=== PATIENT | female | born 2000 | race Caucasian/White ===

== ENCOUNTER 2023-05-17 02:22 | Emergency (ER) | payer OTHER ==
[~2023-05-17] VITALS: Ht 167.6 cm; Wt 63.5 kg
[2023-05-17 02:27] VITALS: BP 137/61; PULSE 105; RESP 16; TEMP 97.5; O2SAT 98
[2023-05-17] MEDS ORDERED: NACL 0.9% 1,000 ML IV ONE (02:35)
[2023-05-17] MEDS ORDERED: DEXT10CA PO (02:43)
[2023-05-17] MEDS ORDERED: LORazepam 2 MG/ML VIAL IVP ONE (02:45)
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
--- NOTE | 2023-05-17 02:48 | NUR ---
Placed in bed 7.
--- NOTE | 2023-05-17 02:49 | NUR ---
Dr. Russo seen and evaluated pt at bedside.
[2023-05-17 02:56] LABS: BASOPHILS # (AUTO) 0.1 K/uL (0.00-0.22); BASOPHILS % (AUTO) 0.7 % (0.0-2.0); EOSINOPHILS % (AUTO) 0.2 % (0.0-4.0); HEMATOCRIT 42.1 % (36-48); HEMOGLOBIN 14.6 g/dL (12.0-16.0); LYMPHOCYTES # (AUTO) 1.9 K/uL (2.5-16.5); LYMPHOCYTES % (AUTO) 14.5 % (20.5-51.1); MEAN CORPUSCULAR HEMOGLOBIN 30 pg (27-31); MEAN CORPUSCULAR HGB CONC 35 g/dL (33-37); MEAN CORPUSCULAR VOLUME 86.9 fL (80-94); MONOCYTES # (AUTO) 1.4 K/uL (0.8-1.0); MONOCYTES % (AUTO) 10.3 % (1.7-9.3); NEUTROPHILS # (AUTO) 9.9 K/uL (1.8-7.7); NEUTROPHILS % (AUTO) 74.3 % (42.2-75.2); PLATELET COUNT (AUTO) 245 K/uL (140-450); RED BLOOD CELL COUNT(AUTO) 4.84 MIL/uL (4.20-5.40); RED CELL DISTRIBUTION WIDTH 12.3 % (11.6-13.7); WHITE BLOOD COUNT (AUTO) 13.3 K/uL (4.8-10.8)
[2023-05-17 03:10] LABS: BILIRUBIN,URINE 2+ (NEGATIVE); BLOOD, URINE 1+ (NEGATIVE); COLOR,URINE YELLOW (YELLOW); LEUKOCYTE ESTERASE ,URINE NEGATIVE (NEGATIVE); NITRITE, URINE NEGATIVE (NEGATIVE); UGLUCOSE NEGATIVE (NEGATIVE)
[2023-05-17 03:19] LABS: ALBUMIN 4.3 g/dL (3.4-5.0); ANION GAP 19.4 (8-16); ASPARTATE AMINOTRANSFERASE 15 U/L (15-37); CARBON DIOXIDE 22.3 mmol/L (21-32); CHLORIDE 103 mmol/L (98-107); CREATININE 0.8 mg/dL (0.6-1.3); GFR ARICAN-AMERICAN 113 mL/min (>90); GLUCOSE 117 mg/dL (74-106); POTASSIUM 3.7 mmol/L (3.5-5.1); SODIUM SERUM 141 mmol/L (136-145); TOTAL BILIRUBIN 1.5 mg/dL (0.0-1.0); UREA NITROGEN, BLOOD 13 mg/dL (7-18)
--- NOTE | 2023-05-17 03:20 | NUR ---
PT TAKEN TO CT
[2023-05-17 03:24] LABS: BARBITURATE, URINE NEGATIVE ng/ml (NEG <=200); BENZODIAZEPINE, URINE NEGATIVE ng/mL (NEG <=200); CANNABINOID, URINE POSITIVE ng/mL (NEG <=50); COCAINE, URINE NEGATIVE ng/mL (NEG <=300); OPIATE, URINE NEGATIVE ng/mL (NEG <=2000); PHENCYCLIDINE SCREEN,URINE NEGATIVE ng/mL (NEG <=25)
[2023-05-17 03:26] LABS: APPEARANCE,URINE HAZY (CLEAR)
[2023-05-17 03:29] LABS: HYALINE CASTS, URINE 0-5 /LPF (None Seen)
[2023-05-17 03:32] LABS: ACETAMINOPHEN < 0.5 ug/ml (10-30); SALICYLATE < 2.8 mg/dL (2.8-20.0)
--- NOTE | 2023-05-17 03:38 | NUR ---
PT RETURN FROM CT
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
[2023-05-17] MEDS ORDERED: OLAN2.5T1 PO (11:58)
[2023-05-17] MEDS ORDERED: OLANZapine 5 MG ODT ONE (12:08)
[2023-05-17 13:07] VITALS: BP 119/78; PULSE 100; RESP 15; TEMP 98; O2SAT 98
--- NOTE | 2023-05-17 13:09 | NUR ---
Patient discharged with v/s stable. Written and verbal after care instructions given and explained. Patient alert, oriented and verbalized understanding of instructions. Ambulatory with steady gait. All questions addressed prior to discharge. ID band removed. Patient advised to follow up with PMD. Rx of ZYPREXA given. Patient educated on indication of medication including possible reaction and side effects. Opportunity to ask questions provided and answered.
[2023-05-17] MEDS ORDERED: OLANZapine 5 MG ODT PO SCH (21:00)
== END 2023-05-17 13:07 | disposition home or self-care (01) ==
LOC: MED 02:22
DX: R41.82 Altered mental status, unspecified (principal)
CPT/HCPCS: 36415; 70450; 80053; 80305; 81001; 81025; 85025; 96361; 96374; 99285; G0480; G0482; J2060; J7030

== ENCOUNTER 2023-12-30 10:43 | Emergency (ER) | payer OTHER ==
[~2023-12-30] VITALS: Ht 160 cm; Wt 54.4 kg
[~2023-12-30 10:43] MED LIST: DEXT10CA PO; OLAN2.5T1 PO
[2023-12-30 11:09] VITALS: BP 121/73; PULSE 106; RESP 18; TEMP 98.2; O2SAT 98
[2023-12-30] MEDS ORDERED: BACTO TP (13:16)
[2023-12-30] MEDS ORDERED: AMOX1TAB8 PO (13:16)
[2023-12-30 13:53] VITALS: BP 122/82; PULSE 88; RESP 16; TEMP 98.2; O2SAT 99
== END 2023-12-30 13:53 | disposition home or self-care (01) ==
LOC: MED 10:43
DX: N64.4 Mastodynia (principal); T81.33XA Disruption of traumatic injury wound repair, initial encounter; J45.909 Unspecified asthma, uncomplicated; Z79.899 Other long term (current) drug therapy
CPT/HCPCS: 99283